=== PATIENT | female | born 1975 | race African-American/Black ===

== ENCOUNTER 2017-03-14 16:16 | Emergency (ER) | payer SELFPAY ==
[~2017-03-14] VITALS: Ht 170.2 cm; Wt 72.6 kg
[2017-03-14] MEDS ORDERED: IV NORMAL SALINE 1,000ML 500 ML IV SCH (16:39)
[2017-03-14] MEDS ORDERED: KETOROLAC 30 MG/ML VIAL. IV ONE (17:00)
[2017-03-14] MEDS ORDERED: ONDANSETRON PF 4 MG/2 ML VIAL. IV ONE (17:00)
[2017-03-14 17:01] LABS: BASO # 0.1 x10^3/uL (0.0-0.2); BASO % 0 % (0-3); EOS # 0.1 x10^3/uL (0.0-0.7); EOS % 1 % (0-3); HEMATOCRIT 33.6 % (36.0-47.0); LYMPH # 3.4 x10^3/uL (1.0-4.8); LYMPH % 28 % (24-48); MEAN CORPUSCULAR HEMOGLOBIN 28 pg (25-35); MEAN CORPUSCULAR HGB CONC 33 g/dL (31-37); MEAN CORPUSCULAR VOLUME 86 fL (79-100); MONO # 0.7 x10^3/uL (0.0-1.1); MONO % 6 % (0-9); NEUT % 65 % (31-73); PLATELET COUNT 286 x10^3/uL (140-400); RED CELL DISTRIBUTION WIDTH 14.6 % (11.5-14.5); WHITE BLOOD COUNT 12.2 x10^3/uL (4.0-11.0)
[2017-03-14 17:02] LABS: CALCIUM 9.4 mg/dL (8.5-10.1); CREATININE 0.7 mg/dL (0.6-1.0); GFR 92.7; POTASSIUM 3.4 mmol/L (3.5-5.1)
[2017-03-14 17:44] LABS: BACTERIA,URINE FEW /HPF (0-FEW); BILIRUBIN,URINE NEG (NEG); CLARITY,URINE CLEAR; COLOR,URINE STRAW; GLUCOSE,URINE NEG (NEG); NITRITE,URINE NEG (NEG); SQUAMOUS EPITHELIAL CELL,UR MANY /LPF; UROBILINOGEN,URINE 0.2 mg/dL (0.2 mg/dL)
--- NOTE | 2017-03-14 17:44 | RAD ---
CT abdomen and pelvis without contrast TECHNIQUE: Helical noncontrast CT imaging of the abdomen and pelvis was acquired. HISTORY: Right lower quadrant abdominal pain and vaginal bleeding. Abdomen findings: Lung bases and bones are unremarkable. Liver, gallbladder, spleen, pancreas, adrenals and kidneys are unremarkable. No nephroureterolithiasis or hydronephrosis. No bowel obstruction or inflammatory change. The tip of the appendix is obscured by surrounding small bowel loops although the proximal and mid appendix demonstrates a normal diameter 6 mm without discrete inflammatory change. Absence of intravenous contrast administration can decrease sensitivity to detect early changes of acute appendicitis. No abdominal free fluid. Pelvis findings: Retroverted uterus with intrauterine device. Uterine size is prominent. Ovaries poorly visualized due to surrounding bowel loops, there is an indistinct 2 cm right ovarian hyperdensity on image 98 could represent a solid lesion or hemorrhagic cyst. No bladder calculi. Mild dependent pelvic free fluid. Rectum and bones are unremarkable. IMPRESSION: 1. 2 cm hyperdense lesion of the right ovary could represent a hemorrhagic cyst or a solid mass. 2. The appendix is negative. See discussion above. 3. Mild prominence of the size of the uterus. Retroverted uterus with intrauterine device noted. Exposure: One or more of the following individualized dose reduction techniques were utilized for this examination: 1. Automated exposure control 2. Adjustment of the mA and/or kV according to patient size 3. Use of iterative reconstruction technique Electronically signed by: Musa Boyle MD (03/14/2017 5:41 PM) [facility]
--- NOTE | 2017-03-14 17:47 | PHYS DOC ---
Text Text Diagnosis: 1. Hemorrhagic ovarian cyst. 2. Abdominal pain (ESTUARDO YOUNGBLOOD DO) General Chief Complaint: ABDOMINAL PAIN Stated Complaint: ABDOMINAL PAIN Time Seen by MD: 16:21 Source: patient, EMS Exam Limitations: no limitations Problems: (ANTONIETTA ANDERSON DO) Time Seen by MD: 18:47 Problems: (ESTUARDO YOUNGBLOOD DO) History of Present Illness Initial Comments Patient is a 41-year-old female brought to the ED by EMS with abdominal pain. Patient states 20 minutes prior to arrival while sitting on the toilet she developed sudden onset severe right lower quadrant abdominal pain described as sharp and stabbing the 10 on a pain scale no exacerbating or alleviating factors. She had mild nausea due to the discomfort but otherwise denies appetite change in bowel or bladder symptoms, denies vaginal discharge or bleeding. She has an IUD in place, she has questionable history of cervical cancer in the past which was treated with cryotherapy. No unexplained weight loss or night sweats. Timing/Duration: 1/2 hour Severity: severe Modifying Factors: improves with other Associated Symptoms: other (ANTONIETTA ANDERSON DO) Allergies: Coded Allergies: CLAUDIA Inhibitors (Verified Allergy, Intermediate, rash, 03/14/17) Penicillins (Verified Allergy, Intermediate, rash, 03/14/17) Past Medical History Medical History: other (questionable cervical cancer treated cryotherapy, ovarian cyst, hypertension, coronary artery disease) Surgical History: other (angioplasty, ovarian cystectomy) (ANTONIETTA ANDERSON DO) Social History Smoker: cigarettes Alcohol: none Drugs: marijuana (ANTONIETTA ANDERSON DO) Review of Systems Constitutional: denies chills, denies diaphoresis, denies fever, denies malaise Respiratory: denies cough, denies shortness of breath Cardiovascular: denies chest pain, denies palpitations Gastrointestinal: see HPI Genitourinary: denies discharge, denies dysuria, denies frequency, denies hematuria Musculoskeletal: denies back pain, denies joint swelling, denies neck pain Psychiatric/Neurological: denies headache, denies numbness, denies paresthesia (ANTONIETTA ANDERSON DO) Physical Exam General Appearance: WD/WN, severe distress Ear, Nose, Throat: hearing grossly normal, normal ENT inspection, normal pharynx Neck: non-tender, supple Respiratory: normal breath sounds, no respiratory distress Cardiovascular: normal peripheral pulses, regular rate, rhythm Gastrointestinal: soft (nondistended, right lower quadrant tenderness to palpation no rebound guarding or masses palpable bowel sounds diminished) Rectal: deferred Back: no CVA tenderness, no vertebral tenderness Extremities: non-tender, normal inspection 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 PHYSICIAN: ANTONIETTA ANDERSON DO REASON: R abd/RLQ pain stone vs appy PROCEDURE: CT ABDOMEN PELVIS WO CONTRAST CT abdomen and pelvis without contrast TECHNIQUE: Helical noncontrast CT imaging of the abdomen and pelvis was acquired. HISTORY: Right lower quadrant abdominal pain and vaginal bleeding. Abdomen findings: Lung bases and bones are unremarkable. Liver, gallbladder, spleen, pancreas, adrenals and kidneys are unremarkable. No nephroureterolithiasis or hydronephrosis. No bowel obstruction or inflammatory change. The tip of the appendix is obscured by surrounding small bowel loops although the proximal and mid appendix demonstrates a normal diameter 6 mm without discrete inflammatory change. Absence of intravenous contrast administration can decrease sensitivity to detect early changes of acute appendicitis. No abdominal free fluid. Pelvis findings: Retroverted uterus with intrauterine device. Uterine size is prominent. Ovaries poorly visualized due to surrounding bowel loops, there is an indistinct 2 cm right ovarian hyperdensity on image 98 could represent a solid lesion or hemorrhagic cyst. No bladder calculi. Mild dependent pelvic free fluid. Rectum and bones are unremarkable. IMPRESSION: 1. 2 cm hyperdense lesion of the right ovary could represent a hemorrhagic cyst or a solid mass. 2. The appendix is negative. See discussion above. 3. Mild prominence of the size of the uterus. Retroverted uterus with intrauterine device noted. Exposure: One or more of the following individualized dose reduction techniques were utilized for this examination: 1. Automated exposure control 2. Adjustment of the mA and/or kV according to patient size 3. Use of iterative reconstruction technique Electronically signed by: Sharon Boyle MD (03/14/2017 5:41 PM) [facility] DICTATED AND SIGNED BY: SHARON BOYLE MD DATE: 03/14/17 173 CC: PCP,NO; ANTONIETTA ANDERSON DO ~ Labs and urine studies unremarkable. 1804: I discussed findings with the patient and the need for ultrasound evaluation to document ovarian blood flow. Patient is agreeable and has been resting comfortably since she received fentanyl 50 g intravenously. 1806: I discussed the patient with Dr. Youngblood at 1800 shift change. See his documentation for results and patient disposition. (ANTONIETTA ANDERSON DO) Orders, Labs, Meds Complete pelvic ultrasound HISTORY: Possible right ovarian hemorrhagic cyst on CT abdomen and pelvis, right lower quadrant pain possible right ovarian torsion TECHNIQUE: Transabdominal and transvaginal transducers with grayscale and duplex Doppler sonography were utilized. FINDINGS: Transabdominal imaging demonstrates retroverted uterus. Intrauterine device. Limited visualization of the uterus from shadowing. Ovaries poorly visualized transabdominal. Basilar imaging demonstrates retroverted uterus. Mild low position of the intrauterine device within the lower uterine segment does not extend to the fundus. Uterus measures 10.0 cm longitudinal by 4.6 cm AP by 7.0 cm transverse. Endometrium thickness at the fundus above the intrauterine device is 6 mm. Anterior uterine intramural hypoechoic 1.2 cm mass likely a small leiomyoma. Right ovary measures 3.1 x 2.9 x 3.6 cm demonstrating a 2.7 cm isoechoic lesion with mild peripheral hypervascularity no discrete internal blood flow. Several right ovarian subcentimeter follicles. There is intact right ovarian blood flow. Left ovary demonstrates subcentimeter follicles. Intact left ovarian blood flow. Left ovary measures 3.4 x 3.0 x 1.8 cm. IMPRESSION: 1. Retroverted uterus with low position of the intrauterine device as described above. There is a probable 1.2 cm anterior uterine intramural leiomyoma. 2. 2.7 cm right ovarian isoechoic solid-appearing lesion without internal blood flow. This is likely an acute hemorrhagic cyst based on the combined CT and ultrasound imaging features. A solid mass cannot be excluded although no blood flow within this lesion is present to confirm a solid neoplasm. Follow-up sonography in 3 months is advised. Electronically signed by: Sharon Boyle MD (03/14/2017 7:15 PM) [facility] DICTATED AND SIGNED BY: SHARON BOYLE MD DATE: 03/14/171910 As above patient with CT and ultrasound are consistent more with a hemorrhagic cyst as her etiology for her pain. Patient has improved pain with repeat benign abdominal exam with no rebound or guarding. She is able to tolerate fluids by mouth without any difficulty. She is in no obvious distress with normal vital signs. Given patient appears well with no surgical findings she' ll be discharged in stable condition told to follow with [employer] within 2-3 days and come back to the ED sooner with worsening pain fevers vomiting or other general concerns. Patient aware and agreeable with plan and verbalized understanding of the above instructions. (ESTUARDO YOUNGBLOOD DO) ANTONIETTA ANDERSON DO Mar 14, 2017 17:47 ESTUARDO YOUNGBLOOD DO Mar 14, 2017 19:33
--- NOTE | 2017-03-14 19:17 | RAD ---
Complete pelvic ultrasound HISTORY: Possible right ovarian hemorrhagic cyst on CT abdomen and pelvis, right lower quadrant pain possible right ovarian torsion TECHNIQUE: Transabdominal and transvaginal transducers with grayscale and duplex Doppler sonography were utilized. FINDINGS: Transabdominal imaging demonstrates retroverted uterus. Intrauterine device. Limited visualization of the uterus from shadowing. Ovaries poorly visualized transabdominal. Basilar imaging demonstrates retroverted uterus. Mild low position of the intrauterine device within the lower uterine segment does not extend to the fundus. Uterus measures 10.0 cm longitudinal by 4.6 cm AP by 7.0 cm transverse. Endometrium thickness at the fundus above the intrauterine device is 6 mm. Anterior uterine intramural hypoechoic 1.2 cm mass likely a small leiomyoma. Right ovary measures 3.1 x 2.9 x 3.6 cm demonstrating a 2.7 cm isoechoic lesion with mild peripheral hypervascularity no discrete internal blood flow. Several right ovarian subcentimeter follicles. There is intact right ovarian blood flow. Left ovary demonstrates subcentimeter follicles. Intact left ovarian blood flow. Left ovary measures 3.4 x 3.0 x 1.8 cm. IMPRESSION: 1. Retroverted uterus with low position of the intrauterine device as described above. There is a probable 1.2 cm anterior uterine intramural leiomyoma. 2. 2.7 cm right ovarian isoechoic solid-appearing lesion without internal blood flow. This is likely an acute hemorrhagic cyst based on the combined CT and ultrasound imaging features. A solid mass cannot be excluded although no blood flow within this lesion is present to confirm a solid neoplasm. Follow-up sonography in 3 months is advised. Electronically signed by: Musa Boyle MD (03/14/2017 7:15 PM) [facility]
[2017-03-14] MEDS ORDERED: HYDR-971 PO (19:39)
[2017-03-14 19:40] VITALS: BP 157/101
[2017-03-14] MEDS ORDERED: ONDA4TAB10 SL (19:40)
[2017-03-14] MEDS ORDERED: HYDROcodone/APAP 5/325MG 1 TAB TABLET PO ONE (19:45)
== END 2017-03-14 19:50 | disposition home or self-care (01) ==
LOC: ER 16:16
DX: N83.201 Unspecified ovarian cyst, right side (principal); F17.210 Nicotine dependence, cigarettes, uncomplicated; F12.10 Cannabis abuse, uncomplicated; I25.10 Atherosclerotic heart disease of native coronary artery without angina pectoris; Z98.61 Coronary angioplasty status; Z88.0 Allergy status to penicillin; Z88.8 Allergy status to other drugs, medicaments and biological substances
CPT/HCPCS: 36415; 74176; 76830; 76856; 80048; 81001; 85025; 87086; 96361; 96374; 96375; 99285; J1885; J2405; J3010; J7030